=== PATIENT | female | born 2000 | race Caucasian/White ===

== ENCOUNTER 2023-04-14 20:18 | Emergency (ER) | payer OTHER ==
[2023-04-14] MEDS ORDERED: Ketorolac 30 MG/ML SDV IVPUSH ONE (23:09)
[2023-04-14] MEDS ORDERED: Ondansetron 4 MG/2 ML SDV IVPUSH ONE (23:09)
[2023-04-14] MEDS ORDERED: diphenhydrAMINE 50 MG/ML SDV IVPUSH ONE (23:09)
[2023-04-14] MEDS ORDERED: Sodium Chloride 0.9% 1,000 ML IV ONE (23:09)
== END 2023-04-15 00:16 | disposition home or self-care (01) ==
LOC: DL.ED 20:18
DX: G43.909 Migraine, unspecified, not intractable, without status migrainosus (principal); Z88.1 Allergy status to other antibiotic agents
CPT/HCPCS: 96374; 96375; 99283; J1200; J1885; J2405; J7030

== ENCOUNTER 2023-10-09 19:35 | Emergency (ER) | payer OTHER ==
[2023-10-09] MEDS: Sodium Chloride 0.9% 1,000 ML IV ONE (22:35)
[2023-10-09] MEDS: Ketorolac 30 MG/ML SDV IVPUSH ONE (22:35)
[2023-10-09] MEDS: Metoclopramide 10 MG/2 ML SDV IVPUSH ONE (22:37)
[2023-10-09] MEDS: Dexamethasone 4 MG/ML SDV IVPUSH ONE (22:40)
[2023-10-09] MEDS: diphenhydrAMINE 50 MG/ML SDV IVPUSH ONE (22:45)
== END 2023-10-09 23:18 | disposition home or self-care (01) ==
LOC: DL.ED 19:35
DX: G43.909 Migraine, unspecified, not intractable, without status migrainosus (principal); Z88.1 Allergy status to other antibiotic agents
CPT/HCPCS: 96361; 96374; 96375; 99283; J1100; J1200; J1885; J2765; J7030